=== PATIENT | female | born 1970 | race African-American/Black ===

== ENCOUNTER 2017-09-30 03:46 | Inpatient (IN) | payer MEDICAID, OTHER ==
[~2017-09-30] VITALS: Ht 170.2 cm; Wt 78.5 kg
[~2017-09-30 03:46] MED LIST: AMLO5TAB88; HYDR-2510
[2017-09-30] MEDS ORDERED: NITROGLYCERIN OINT 1GM/INCH UDPKT TD STA (04:51)
[2017-09-30] MEDS ORDERED: MAGNESIUM/ALUMINUM HYDROXIDE/SIMETHICONE 30ML UDC PO STA (04:51)
[2017-09-30] MEDS ORDERED: ASPIRIN 81MG TABLET PO STA (04:51)
[2017-09-30 05:29] LABS: BASOPHILS % 0.7 % (0.0-2.0); EOSINOPHILS % 2.2 % (0.0-5.0); HEMATOCRIT. 35.2 % (36.0-48.0); HEMOGLOBIN. 11.8 g/dL (12.0-16.0); LYMPHOCYTES % 35.8 % (20.0-50.0); MEAN CORPUSCULAR HEMOGLOBIN 31.8 pg (28.0-32.0); MEAN CORPUSCULAR VOLUME 94.7 fL (81.0-99.0); MEAN PLATELET VOLUME 10.2 fl (7.4-10.4); MONOCYTES % 7.5 % (2.0-8.0); NEUTROPHILS % 53.8 % (40.0-76.0); PLATELET 145 x1000/uL (130-400); RED BLOOD CELL COUNT 3.72 mill/uL (4.2-5.4); RED CELL DISTRIBUTION WIDTH 12.5 % (11.6-14.6)
[2017-09-30 05:42] LABS: CARBON DIOXIDE 30 mEq/L (21-32); CHLORIDE 108 mEq/L (98-107); TROPONIN I < 0.02 ng/mL (0.00-0.04)
[2017-09-30] MEDS ORDERED: SODIUM CHLORIDE 0.9% 1,000 ML IV SCH (05:45)
[2017-09-30] MEDS ORDERED: ACETAMINOPHEN 325MG TABLET PO PRN (05:45)
[2017-09-30 09:00] VITALS: BP_SYST 109; BP_SYST 112; BP_SYST 117; BP_DIAS 67; BP_DIAS 79; BP_DIAS 80
[2017-09-30] MEDS ORDERED: NON FORMULARY PATIENT HOME MED EA XX SCH ×2 (09:15→10:00)
[2017-09-30 09:18] VITALS: BP 117/74
[2017-09-30] MEDS: AMLODIPINE 5MG TABLET PO SCH ×2 (10:30→17:56)
[2017-09-30] MEDS ORDERED: CLONIDINE 0.1MG TABLET PO PRN (10:30)
[2017-09-30] MEDS: ENOXAPARIN 40MG/0.4ML SYR SUBCUT SCH ×2 (11:00→12:54)
[2017-09-30 11:47] LABS: CREATINE KINASE 76 IU/L (26-192); CREATINE KINASE MB FRACTION < 0.5 ng/mL (0.5-3.6); HDL CHOLESTEROL 50 mg/dL (40-59); LDL CHOLESTEROL 91 mg/dL (5-100); TROPONIN I < 0.02 ng/mL (0.00-0.04)
[2017-09-30 12:00] VITALS: BP 115/67
[2017-09-30] MEDS: IBUPROFEN 600MG TABLET PO PRN (12:53)
[2017-09-30] MEDS ORDERED: ONDANSETRON HCL 4MG/2ML VIAL IV PRN (13:15)
[2017-09-30] MEDS ORDERED: POTASSIUM CHLORIDE 20MEQ TABLET SR PO NR (13:15)
[2017-09-30 16:00] VITALS: BP 147/91
[2017-09-30 16:10] LABS: CLARITY URINE CLEAR (CLEAR); COLOR URINE YELLOW (YELLOW); GLUCOSE URINE NEGATIVE (NEGATIVE); KETONES URINE NEGATIVE (NEGATIVE); LEUKOCYTE ESTERASE URINE 1+ (NEGATIVE); NITRITE URINE NEGATIVE (NEGATIVE); OCCULT BLOOD URINE NEGATIVE (NEGATIVE); PROTEIN URINE NEGATIVE (NEGATIVE); SPECIFIC GRAVITY URINE 1.012 (1.005-1.030); UROBILINOGEN URINE 0.2 E.U./dL (0.2-1.0)
[2017-09-30 16:21] LABS: *AMPHETAMINES SCREEN URINE NEGATIVE (NEGATIVE); *BARBITURATES SCREEN URINE NEGATIVE (NEGATIVE); *BENZODIAZEPINES SCREEN URINE NEGATIVE (NEGATIVE); *COCAINE SCREEN URINE NEGATIVE (NEGATIVE); CANNABINOID URINE SCREEN NEGATIVE (NEGATIVE); METHADONE URINE SCREEN NEGATIVE (NEGATIVE); OPIATES URINE SCREEN NEGATIVE (NEGATIVE); PHENCYCLIDINE URINE SCREEN NEGATIVE (NEGATIVE)
[2017-09-30 20:00] VITALS: BP 134/85
[2017-10-01] VITALS: BP 119/78
[2017-10-01 04:00] VITALS: BP 116/61
[2017-10-01 06:24] LABS: BASOPHILS % 0.7 % (0.0-2.0); EOSINOPHILS % 2.3 % (0.0-5.0); HEMATOCRIT. 34.8 % (36.0-48.0); HEMOGLOBIN. 11.4 g/dL (12.0-16.0); LYMPHOCYTES % 33.9 % (20.0-50.0); MEAN CORPUSCULAR HEMOGLOBIN 31.1 pg (28.0-32.0); MONOCYTES % 9.6 % (2.0-8.0); NEUTROPHILS % 53.5 % (40.0-76.0); PLATELET 153 x1000/uL (130-400); RED BLOOD CELL COUNT 3.66 mill/uL (4.2-5.4); RED CELL DISTRIBUTION WIDTH 12.6 % (11.6-14.6)
[2017-10-01 07:02] LABS: CREATINE KINASE 70 IU/L (26-192); CREATINE KINASE MB FRACTION < 0.5 ng/mL (0.5-3.6); TROPONIN I < 0.02 ng/mL (0.00-0.04)
[2017-10-01 08:19] VITALS: BP 129/90
[2017-10-01 08:22] VITALS: BP 129/90
[2017-10-01] MEDS: IBUPROFEN 600MG TABLET PO PRN (08:22)
[2017-10-01] MEDS: AMLODIPINE 5MG TABLET PO SCH (08:22)
== END 2017-10-01 12:15 | disposition left against medical advice (07) | DRG 199 ==
LOC: ER 03:46 → 6WST 05:46 → EDBEDREQ 05:48 → EDBEDREQTM 05:48 → ENRESERV 06:43
PROVIDERS: ADMIT Internal Medicine; ATTEND Internal Medicine
DX: I11.9 Hypertensive heart disease without heart failure (principal); E87.8 Other disorders of electrolyte and fluid balance, not elsewhere classified; M94.0 Chondrocostal junction syndrome [Tietze]; E83.51 Hypocalcemia; D64.9 Anemia, unspecified; G43.909 Migraine, unspecified, not intractable, without status migrainosus; R00.1 Bradycardia, unspecified; Z53.21 Procedure and treatment not carried out due to patient leaving prior to being seen by health care provider; Z79.899 Other long term (current) drug therapy; Z90.49 Acquired absence of other specified parts of digestive tract
CPT/HCPCS: 36415; 71010; 80053; 80061; 80305; 81001; 82550; 82553; 83690; 84443; 84484; 85025; 85379; 87086; 93005; 93306; 93970; 99285; J1650; J7030

== ENCOUNTER 2019-10-22 15:41 | Emergency (ER) | payer MEDICAID ==
[~2019-10-22] VITALS: Ht 170.2 cm; Wt 74.0 kg
[2019-10-22 17:45] VITALS: BP 143/68
== END 2019-10-22 17:49 | disposition home or self-care (01) ==
LOC: ER 15:41
DX: T14.8XXA Other injury of unspecified body region, initial encounter (principal); W57.XXXA Bitten or stung by nonvenomous insect and other nonvenomous arthropods, initial encounter; Y93.89 Activity, other specified; Y92.89 Other specified places as the place of occurrence of the external cause; Y99.8 Other external cause status; I10 Essential (primary) hypertension; Z98.890 Other specified postprocedural states; Z90.49 Acquired absence of other specified parts of digestive tract
CPT/HCPCS: 99283

== ENCOUNTER 2020-03-05 02:13 | Emergency (ER) | payer MEDICAID ==
[~2020-03-05] VITALS: Ht 170.2 cm; Wt 78.0 kg
[2020-03-05] MEDS ORDERED: NALOXONE HCL 1 MG/ML 2ML VIAL IV ONE (02:30)
[2020-03-05] MEDS ORDERED: ASPIRIN 325MG EC TABLET PO ONE (03:15)
[2020-03-05 03:46] LABS: BASOPHILS % 0.6 % (0.0-2.0); CHLORIDE 106 mEq/L (98-107); EOSINOPHILS % 0.2 % (0.0-5.0); HEMATOCRIT. 37.9 % (36.0-48.0); HEMOGLOBIN. 12.8 g/dL (12.0-16.0); LYMPHOCYTES % 19.3 % (20.0-50.0); MEAN CORPUSCULAR HEMOGLOBIN 31.9 pg (28.0-32.0); MEAN CORPUSCULAR VOLUME 94.6 fL (81.0-99.0); MEAN PLATELET VOLUME 10.1 fl (7.4-10.4); MONOCYTES % 4.8 % (2.0-8.0); NEUTROPHILS % 75.1 % (40.0-76.0); PLATELET 212 x1000/uL (130-400); RED CELL DISTRIBUTION WIDTH 12.7 % (11.6-14.6)
[2020-03-05 04:27] VITALS: BP 136/83
== END 2020-03-05 04:35 | disposition home or self-care (01) ==
LOC: ER 02:13
DX: R07.89 Other chest pain (principal); F41.9 Anxiety disorder, unspecified; I10 Essential (primary) hypertension; Z90.49 Acquired absence of other specified parts of digestive tract; Z98.890 Other specified postprocedural states; Z79.899 Other long term (current) drug therapy
CPT/HCPCS: 36415; 71045; 80053; 83880; 84484; 85025; 93005; 99285

== ENCOUNTER 2020-03-05 22:48 | Emergency (ER) | payer MEDICAID ==
[~2020-03-05] VITALS: Ht 170.2 cm; Wt 77.0 kg
[2020-03-06 00:12] LABS: BASOPHILS % 0.4 % (0.0-2.0); EOSINOPHILS % 0.5 % (0.0-5.0); HEMATOCRIT. 38.2 % (36.0-48.0); HEMOGLOBIN. 12.9 g/dL (12.0-16.0); LYMPHOCYTES % 17.9 % (20.0-50.0); MEAN CORPUSCULAR HEMOGLOBIN 32.1 pg (28.0-32.0); MEAN CORPUSCULAR VOLUME 94.7 fL (81.0-99.0); MEAN PLATELET VOLUME 10.1 fl (7.4-10.4); MONOCYTES % 5.8 % (2.0-8.0); NEUTROPHILS % 75.4 % (40.0-76.0); PLATELET 192 x1000/uL (130-400); RED BLOOD CELL COUNT 4.04 mill/uL (4.2-5.4); RED CELL DISTRIBUTION WIDTH 12.6 % (11.6-14.6)
[2020-03-06 00:13] LABS: CHLORIDE 106 mEq/L (98-107)
[2020-03-06 03:07] VITALS: BP 122/89
== END 2020-03-06 03:08 | disposition home or self-care (01) ==
LOC: ER 22:48
DX: R07.89 Other chest pain (principal); R00.2 Palpitations; F41.9 Anxiety disorder, unspecified; I10 Essential (primary) hypertension; F17.210 Nicotine dependence, cigarettes, uncomplicated; Z98.890 Other specified postprocedural states; Z90.49 Acquired absence of other specified parts of digestive tract
CPT/HCPCS: 36415; 71045; 80053; 84484; 85025; 85379; 93005; 99285

== ENCOUNTER 2025-10-19 16:13 | Emergency (ER) | payer MEDICAID, OTHER ==
[~2025-10-19] VITALS: Ht 170.2 cm; Wt 86.0 kg
[~2025-10-19 16:13] MED LIST changes: -HYDR-2510; +HYDR50TA
[2025-10-19 16:24] VITALS: O2SAT 99
[2025-10-19] MEDS ORDERED: BO1 TP (17:06)
[2025-10-19] MEDS ORDERED: METH4TAB95 MT (17:06)
[2025-10-19] MEDS: DEXAMETHASONE 10 MG/ML VIAL IV ONE (17:11)
[2025-10-19 17:15] VITALS: BP 130/72; PULSE 70; RESP 16; TEMP 36.9; O2SAT 99
== END 2025-10-19 17:19 | disposition home or self-care (01) ==
LOC: ER 16:13
DX: R21 Rash and other nonspecific skin eruption (principal); I10 Essential (primary) hypertension; Z79.52 Long term (current) use of systemic steroids; Z90.49 Acquired absence of other specified parts of digestive tract
CPT/HCPCS: 99283; 96374; J1100